=== PATIENT | male | born 1950 | race Two or more races ===

== ENCOUNTER 2020-09-03 05:19 | Day surgery (SDC) | payer BC, OTHER ==
[2020-08-30 18:10] VITALS: BMI 25.4
[2020-09-03] MEDS ORDERED: MIDAZOLAM HCL 2 MG/2 ML SINGLE DOSE VIAL ONE (19:45)
[2020-09-03 21:09] VITALS: BP 127/94; PULSE 69; TEMP 96.9
== END 2020-09-03 21:00 | disposition home or self-care (01) ==
LOC: JASU-SURG 05:19
PROVIDERS: ATTEND Urology
PROC: 0TF4XZZ Fragmentation in Left Kidney Pelvis, External Approach (ICD-10-PCS; principal; 2020-09-03 17:00)
DX: N20.0 Calculus of kidney (principal)

== ENCOUNTER 2021-09-16 04:24 | Day surgery (SDC) | payer BC, OTHER ==
[2021-09-10 16:59] VITALS: BMI 26.2
[2021-09-16] MEDS ORDERED: MIDAZOLAM HCL 2 MG/2 ML SINGLE DOSE VIAL ONE ×2 (12:55)
[2021-09-16 16:07] VITALS: BP 120/71; PULSE 68; TEMP 96.9
== END 2021-09-16 14:30 | disposition home or self-care (01) ==
LOC: JASU-SURG 04:24
PROVIDERS: ATTEND Urology
PROC: 0TF3XZZ Fragmentation in Right Kidney Pelvis, External Approach (ICD-10-PCS; principal; 2021-09-16 12:00)
DX: N20.0 Calculus of kidney (principal)